=== PATIENT | male | born 1970 | race Caucasian/White ===

== ENCOUNTER 2018-02-01 07:28 | Emergency (ER) | payer OTHER ==
[~2018-02-01] VITALS: Ht 172.7 cm; Wt 90.7 kg
[~2018-02-01 07:28] MED LIST: ASPIRIN81 M2 PO; BENTYL20 MG PO; BUTALB-APAP-CA1 EACH PO; FLEXERIL PO; LEVAQUIN 500 M500 M2 PO; LOPRESSOR100 M1 PO; MOBIC7.5 M1; NORCO 5-325 TA1 EACH PO; NORTRIPTYLINE; PHENERGAN25 M2 RC; SERTRALINE HCL50 MG PO; ZOFRAN 4 MG ORAL4 MG PO
[2018-02-01 08:02] LABS: ABSOLUTE BASOPHILS 0.1 thou/uL (0.0-0.2); ABSOLUTE EOSINOPHILS 0.1 thou/uL (0.0-0.7); ABSOLUTE LYMPHOCYTES 2.2 thou/uL (0.8-5.3); ABSOLUTE MONOCYTES 0.6 thou/uL (0.0-1.2); ABSOLUTE NEUTROPHILS 3.4 thou/uL (1.6-8.1); EOSINOPHILS 1.6 %; HEMATOCRIT 45.3 % (42.0-52.0); HEMOGLOBIN 15.3 gm/dL (14.0-18.0); LYMPHOCYTES 35.2 %; MCHC 33.8 g/dL (28.0-37.0); MONOCYTES 9.2 %; MPV 9.1 fl. (7.2-11.1); NUCLEATED RBCS 0 /100WBC; PLATELET COUNT* 167 thou/uL (150-400); RBC 5.27 mil/uL (4.50-6.00); RDW-CV 13.2 % (10.5-14.5); WBC 6.3 thou/uL (4.0-11.0)
[2018-02-01 08:09] LABS: ANION GAP 9 mmol/L (7-16); BUN 14 mg/dL (7-18); CALCIUM 8.6 mg/dL (8.5-10.1); CHLORIDE 105 mmol/L (98-107); CO2 26 mmol/L (21-32); CREATININE 1.1 mg/dL (0.6-1.3); GLUCOSE 119 mg/dL (70-99); POTASSIUM 4.2 mmol/L (3.5-5.1); SODIUM 140 mmol/L (136-145)
[2018-02-01 08:11] LABS: PROTIME 10.2 Seconds (9.20-11.50)
[2018-02-01 08:21] LABS: ALBUMIN 3.7 g/dL (3.4-5.0); ALKALINE PHOSPHATASE 69 U/L (46-116); LIPASE 191 U/L (73-393); MAGNESIUM 2.1 mg/dL (1.8-2.4); NT-PRO BRAIN NAT PEPTIDE 1198 pg/mL (<300); SGOT 21 U/L (15-37); SGPT 37 U/L (30-65); TOTAL BILIRUBIN 0.4 mg/dL (<0.1-1.0); TROPONIN-I LEVEL <0.06 ng/mL (<0.06)
[2018-02-01 08:41] VITALS: BP 103/77
--- NOTE | 2018-02-02 18:01 | EKG ---
[place] [address] ELECTROCARDIOGRAM REPORT Name: PETER MENDEZ Room: [facility]#: [id number] Admission: 02/01/18 Attend Phys: Discharge: 02/01/18 Date of : 68 Report #: [id number] THIS REPORT FOR: //name// [facility] ED Test Date: 2018-02-01 Test Time: 07:37:22 Pat Name: PETER MENDEZ Department: Room: Gender: M Hub Borer: Mera TOLLIVER : 1970 Requested By: Julian Gupta Order Number: [id number] MD: Alejandro Posada Measurements Intervals [place] Rate: 147 P: VT: QRS: 9 QRSD: 79 T: 3 QT: 304 QTc: 476 Interpretive Statements Supraventricular tachycardia Compared to ECG 02/10/2015 08:00:27 T-wave abnormality now present Sinus rhythm no longer present Electronically Signed On 02-02-2018 18:01:28 FOUNDRY PATTERNMAKER by Alejandro Posada [email or web address] <ELECTRONICALLY SIGNED> By: Alejandro Posada MD, [facility] 02/02/18 1801 D: 12/736 6 Alejandro Posada MD, FACC /EPI
--- NOTE | 2018-02-02 18:02 | EKG ---
[place] [address] ELECTROCARDIOGRAM REPORT Name: PETER MENDEZ Room: [facility]#: [id number] Admission: 02/01/18 Attend Phys: Discharge: 02/01/18 Date of : 68 Report #: [id number] THIS REPORT FOR: //name// [facility] ED Test Date: 2018-02-01 Test Time: 07:50:11 Pat Name: PETER MENDEZ Department: Room: Gender: M Pit Inspector: Mera TOLLIVER : 1970 Requested By: Julian Gupta Order Number: [id number] MD: Alejandro Posada Measurements Intervals [place] Rate: 83 P: 59 MS: 164 QRS: 0 QRSD: 88 T: 19 QT: 363 QTc: 427 Interpretive Statements Sinus rhythm Compared to ECG 02/10/2015 08:00:27 No significant changes Electronically Signed On 02-02-2018 18:01:56 JAVA WEB APPLICATION DEVELOPER by Alejandro Posada [email or web address] <ELECTRONICALLY SIGNED> By: Alejandro Posada MD, [facility] 02/02/18 1801 0750 0750 Alejandro Posada MD, FACC /EPI
== END 2018-02-01 08:41 | disposition home or self-care (01) ==
LOC: M.ERS 07:28
PROVIDERS: Emergency Medicine
DX: I47.1 Supraventricular tachycardia (principal); Z90.49 Acquired absence of other specified parts of digestive tract